=== PATIENT | female | born 2000 | race Hispanic/Latino ===

== ENCOUNTER 2022-03-09 21:35 | Emergency (ER) | payer MEDICARE ==
[~2022-03-09] VITALS: Ht 152.4 cm; Wt 67.6 kg
[2022-03-09] MEDS ORDERED: METOCLOPRAMIDE 10 MG/2 ML VIAL IVP ONE (22:30)
[2022-03-09] MEDS ORDERED: DiphenhydrAMINE HCL 50 MG/ML VIAL IV ONE (22:30)
[2022-03-09] MEDS ORDERED: KETOROLAC 30MG VIAL (30MG/ML) IVP ONE (22:30)
[2022-03-09] MEDS ORDERED: NAPR-1180 PO (23:07)
[2022-03-09 23:20] VITALS: BP 126/85
== END 2022-03-09 23:31 | disposition home or self-care (01) ==
LOC: EDH 21:35
DX: G43.909 Migraine, unspecified, not intractable, without status migrainosus (principal)
CPT/HCPCS: 99284; 96374; 96375; J1200; J1885; J2765

== ENCOUNTER 2022-10-29 20:14 | Emergency (ER) | payer MEDICARE ==
[~2022-10-29] VITALS: Ht 152.4 cm; Wt 70.8 kg
[~2022-10-29 20:14] MED LIST: NAPR-1180 PO
[2022-10-29] MEDS ORDERED: 0.9%NACL 1000ML 1,000 ML IV ONE (22:00)
[2022-10-29] MEDS ORDERED: ONDANSETRON 4MG INJ IVP ONE (22:00)
[2022-10-29] MEDS ORDERED: MORPHINE 4 MG SYG IVP ONE (22:00)
[2022-10-29 22:04] LABS: BASOPHILS % (AUTO) 0.2 % (0.0-5.0); EOSINOPHILS % (AUTO) 0.1 % (0.0-8.0); HEMATOCRIT 44.8 % (36-48); LYMPHOCYTES % (AUTO) 3.5 % (21.0-51.0); MEAN CORPUSCULAR HEMOGLOBIN 28.6 pg (27.0-33.0); MEAN CORPUSCULAR HGB CONC 34.2 g/dL (32.0-36.0); MEAN CORPUSCULAR VOLUME 83.7 fL (80-100); MONOCYTES % (AUTO) 3.4 % (3.0-13.0); NEUTROPHILS % (AUTO) 92.1 % (40.0-77.0); PLATELET COUNT (AUTO) 397 K/uL (130-400); RED BLOOD CELL COUNT(AUTO) 5.35 MIL/uL (4.00-5.50); RED CELL DISTRIBUTION WIDTH 12.4 % (11.0-15.5)
[2022-10-29 22:20] LABS: CARBON DIOXIDE 25 mmol/L (21-32); CHLORIDE 104 mmol/L (101-111); CREATININE 0.8 mg/dL (0.5-1.5); GLOMERULAR FILTR. RATE CALC 97 mL/min (>60); GLUCOSE,RANDOM 102 mg/dL (70-105); POTASSIUM 3.5 mmol/L (3.5-5.1); SODIUM SERUM 140 mmol/L (136-145); UREA NITROGEN, BLOOD 11 mg/dL (7-18)
[2022-10-29 22:22] LABS: ALANINE AMINOTRANSFERASE 17 U/L (12-78); ALBUMIN 4.5 g/dL (3.5-5.0); ASPARTATE AMINOTRANSFERASE 13 U/L (10-37); TOTAL PROTEIN, SERUM 8.3 g/dL (6.0-8.3)
[2022-10-29 22:35] LABS: LIPASE < 50 U/L (114-286)
[2022-10-29 22:44] LABS: APPEARANCE,URINE CLEAR (CLEAR); BILIRUBIN,URINE NEGATIVE (NEGATIVE); COLOR,URINE LIGHT-YELLOW (YELLOW); GLUCOSE, URINE (UA) NEGATIVE (NEGATIVE); KETONES,URINE 100 mg/dL (NEGATIVE); LEUKOCYTE ESTERASE ,URINE NEGATIVE Leu/uL (NEGATIVE); NITRATE,URINE NEGATIVE (NEGATIVE); OCCULT BLOOD,URINE SMALL (NEGATIVE); PROTEIN,URINE 10 mg/dL (NEGATIVE); UROBILINOGEN,URINE 0.2 mg/dL (0.2-1.0)
[2022-10-29] MEDS ORDERED: ACETAMINOPHEN 500 MG TABLET PO ONE (23:00)
[2022-10-29 23:20] LABS: RBC,URINE 0-1 /HPF (0-1); WBC,URINE 0-1 /HPF (0-1)
[2022-10-29 23:21] LABS: BACTERIA,URINE Few /HPF (None Seen); SQUAMOUS EPITHELIAL CELL,UR Few /HPF (0-2); TRANSITIONAL EPI CELLS,URINE Rare /HPF (None Seen)
[2022-10-29] MEDS ORDERED: DICYCLOMINE 20MG (10MG/ML) AMP IM STA (23:22)
[2022-10-29] MEDS ORDERED: ONDA4TAB10 PO (23:40)
[2022-10-29] MEDS ORDERED: DICY20TA2 PO (23:40)
[2022-10-29 23:49] VITALS: BP 106/60
== END 2022-10-30 00:31 | disposition home or self-care (01) ==
LOC: EDH 20:14
DX: K52.9 Noninfective gastroenteritis and colitis, unspecified (principal)
CPT/HCPCS: 99285; 96374; 76705; 96361; 96375; 80053; 84703; 83690; 85025; 81001; 36415; 96372; J7030; J2405; J2270; J0500

== ENCOUNTER 2023-04-28 00:47 | Emergency (ER) | payer MEDICARE ==
[~2023-04-28] VITALS: Ht 152.4 cm; Wt 73.0 kg
[~2023-04-28 00:47] MED LIST changes: +DICY20TA2 PO; +ONDA4TAB10 PO
[2023-04-28] MEDS ORDERED: CYCLOBENZAPRINE HCL 10 MG TABLET PO ONE (01:30)
[2023-04-28] MEDS ORDERED: IBUPROFEN 800 MG TAB PO ONE (01:30)
[2023-04-28 02:32] VITALS: BP 128/68; PULSE 84; RESP 18; O2SAT 98
[2023-04-28] MEDS ORDERED: IBUP-1493 PO (02:54)
[2023-04-28] MEDS ORDERED: CYCL-309 PO (02:54)
== END 2023-04-28 03:31 | disposition home or self-care (01) ==
LOC: EDH 00:47
DX: S20.212A Contusion of left front wall of thorax, initial encounter (principal); S40.011A Contusion of right shoulder, initial encounter; S50.01XA Contusion of right elbow, initial encounter; W18.39XA Other fall on same level, initial encounter; Y93.89 Activity, other specified; Y92.89 Other specified places as the place of occurrence of the external cause; Y99.8 Other external cause status
CPT/HCPCS: 71111; 72050; 73030; 73070; 73090; 81025

== ENCOUNTER 2025-02-10 19:48 | Emergency (ER) | payer BC, MEDICARE ==
[~2025-02-10] VITALS: Ht 152.4 cm; Wt 68.0 kg
[~2025-02-10 19:48] MED LIST changes: +CYCL-309 PO; +IBUP-1493 PO; +ONDA-243 PO; -ONDA4TAB10 PO
--- NOTE | 2025-02-10 20:15 | ERN ---
ED Note History of Present Illness Stated Complaint: DARK URINE, N/V/D Chief Complaint: Multiple Complaints Time Seen by MD: 20:12 Time Seen by Midlevel: 20:15 Dictation: Ms. Ruggiero is a 24 year old female with history of depression, headaches, and frequent UTI who presented to the emergency department this evening for evaluation of dysuria. She reports low back pain which she rates 8/10 accompanied by intermittent nausea, vomiting, and diarrhea. She has also noticed her urine is very dark in color. She states that she was diagnosed last month with kidney infection at [facility]. She date she completed her course of a ntibiotic and was not feeling any better. She states she now feels warm with for hot flashes school. She Denies shortness of breath, cough, chest pain, palpitations, edema, abdominal pain, hematemesis, constipation,melena, hematochezia, headache, dizziness, or focal weakness/paresthesia Allergies: Coded Allergies: No Known Allergies (Unverified Allergy, Unknown, 03/09/22) Home Meds Active Scripts Ibuprofen (Motrin/Advil) 800 Mg Tab, 800 MG PO TID, #30 TAB Prov:ERIK VALENZUELA MD 04/28/23 Cyclobenzaprine HCl (Cyclobenzaprine HCl) 10 Mg Tablet, 10 MG PO TID, #60 TAB Prov:ERIK VALENZUELA MD 04/28/23 Dicyclomine HCl (Bentyl) 20 Mg Tab, 20 MG PO DAILY for 2 Days, #2 TAB Prov:ANITHA RASCONP 10/29/22 Ondansetron (Ondansetron Odt) 4 Mg Tab.rapdis, 4 MG PO Q6HPRN PRN for NAUSEA for 2 Days, #8 TAB Prov:ANITHA RASCONP 10/29/22 Naproxen (Naprosyn) 500 Mg Tablet, 500 MG PO BIDPC for headache for 10 Days, #20 TAB 0 Refills Prov:ERIK VALENZUELA MD 03/09/22 Past Medical History Past Medical History: Depression, UTI Additional Past Medical Hx: HX OF HEADACHES Surgical History: None PSYCH History: no pertinent psych hx Family History: Negative Social History: Negative, Lives with family LMP: Feb 06, 2025 RN Note Reviewed/Agreed w/PFSH: Yes Review of System Dictation REVIEW OF SYSTEMS: CONSTITUTIONAL: Patient denies sweats and weight changes. Reports fatigue and states she feels warm with "hot flashes". EYES: Patient denies any visual symptoms. EARS, NOSE, AND THROAT: No difficulties with hearing. No symptoms of rhinitis or sore throat. CARDIOVASCULAR: Patient denies chest pains, palpitations, orthopnea and paroxysmal nocturnal dyspnea. RESPIRATORY: No dyspnea on exertion, no wheezing or cough. GI: No constipation, abdominal pain, hematochezia or melena. Reports intermittent nausea, vomiting and diarrhea. : No urinary hesitancy or dribbling. No nocturia or urinary frequency. No abnormal urethral discharge. Reports UTI last month (diagnosed at [facility]) and completed her course of antibiotics but is not feeling better. Reports low back back. She states usinr has been very dark in color. MUSCULOSKELETAL: Reports low back pain. NEUROLOGIC: No chronic headaches, no seizures. Patient denies numbness, tingling or weakness. PSYCHIATRIC: Patient denies problems with mood disturbance. No problems with anxiety. ENDOCRINE: No excessive urination or excessive thirst. DERMATOLOGIC: Patient denies any rashes or skin changes. Initial Vital Sign VS Vital Signs Date Time Temp Pulse Resp B/P (MAP) Pulse Ox O2 Delivery O2 Flow Rate FiO2 02/10/25 19:50 98.4 87 18 128/81 98 Room Air 02/10/25 20:34 0 21 Physical Exam Dictation Vital signs: Reviewed. Constitutional: No acute distress. Non-toxic appearing. Head/Face: Normocephalic, atraumatic. Eyes: Periorbital areas with no swelling, redness, or edema. Lids and lashes are normal. Conjunctival injection is absent. Sclera anicteric. Pupils equal, round, reactive to light. ENT: Pinnas intact and no signs of trauma or erythema. Ear canals clear and no discharge. TMs no erythema. No nasal discharge or bleeding noted. Oropharynx with no exudate, redness, swelling, masses, exudates, or evidence of obstruction. Uvula midline. Mucous membranes moist. Neck: Trachea midline, no masses palpated, and no cervical lymphadenopathy. No swelling. Supple, full range of motion. Chest/Axilla: No tenderness, no crepitus, no paradoxical movement, no retractio ns. Cardiovascular: Regular rate, regular rhythm, no murmur, no gallops. Symmetric pulses. No peripheral edema. Respiratory: Respirations even and unlabored. Lung sounds clear; no wheezes, rales or rhonchi. Gastrointestinal: Inspection is normal. No distention is appreciated. Bowel sounds are normal. No mass or organomegaly . There is no tenderness. No rebound. No rigidity. No voluntary or involuntary guarding. No Ross's sign. Neurological: Normal speech, gross motor function intact, gross sensory fun ction intact. No focal weakness/Paresthesia. Musculoskeletal/Extremities: All extremities have full range of motion, no pain or tenderness on palpation. Symmetric pulses. Integumentary: Intact. Skin is normal color, warm and dry. Cap refill less than 3 seconds. Results (Laboratory/Radiology) Laboratory/Radiology Laboratory Tests Test 02/10/25 20:15 White Blood Count 11.4 K/uL (4.8-10.8) H Red Blood Count 4.79 MIL/uL (4.00-5.50) Hemoglobin 14.0 g/dL (12.0-16.0) Hematocrit 41.4 % (36-48) Mean Corpuscular Volume 86.4 fL (79-99) Mean Corpuscular Hemoglobin 29.2 pg (27.0-33.0) Mean Corpuscular Hemoglobin Concent 33.8 g/dL (32.0-36.0) Red Cell Distribution Width 12.6 % (11.0-15.5) Platelet Count 360 K/uL (130-400) Mean Platelet Volume 10.2 fL (7.5-10.5) Immature Granulocyte % (Auto) 0.8 % (0-1) Neutrophils (%) (Auto) 63.9 % (40.0-77.0) Lymphocytes (%) (Auto) 25.3 % (21.0-51.0) Monocytes (%) (Auto) 8.0 % (3.0-13.0) Eosinophils (%) (Auto) 1.5 % (0.0-8.0) Basophils (%) (Auto) 0.5 % (0.0-5.0) Neutrophils # (Auto) 7.3 K/uL (1.8-7.7) Lymphocytes # (Auto) 2.9 K/uL (1.0-4.8) Monocytes # (Auto) 0.9 K/uL (0.1-1.0) Eosinophils # (Auto) 0.17 K/uL (0.00-0.70) Basophils # (Auto) 0.06 K/uL (0.00-0.20) Absolute Immature Granulocyte (auto 0.09 K/uL (0-1) Nucleated Red Blood Cells 0.0 % (0.0-0.19) Urine Color LIGHT-ORANGE (YELLOW) Urine Appearance TURBID (CLEAR) Urine pH 6.0 (5.0-8.0) Urine Specific [place] 1.022 (1.001-1.031) Urine Protein 20 mg/dL (NEGATIVE) H Urine Glucose (UA) NEGATIVE mg/dL (NEGATIVE) Urine Ketones NEGATIVE mg/dL (NEGATIVE) Urine Occult Blood SMALL (NEGATIVE) H Urine Nitrate NEGATIVE (NEGATIVE) Urine Bilirubin NEGATIVE mg/dL (NEGATIVE) Urine Urobilinogen 0.2 mg/dL (0.2-1.0) Urine Leukocyte Esterase 500 Cindi/uL (NEGATIVE) H Urine RBC 11-25 /HPF (0-1) H Urine WBC 51-100 /HPF (0-1) H Urine WBC Clumps (Auto) FEW /HPF (0-1) Urine Squamous Epithelial Cells MOD /HPF (0-2) Urine Other Crystals (Auto) 3 /HPF (None Seen) Urine Bacteria FEW /HPF (None Seen) Urine Yeast RARE /HPF (None Seen) Urine HCG, Qualitative NEGATIVE (NEGATIVE) Sodium Level 140 mmol/L (136-145) Potassium Level 3.7 mmol/L (3.5-5.1) Chloride Level 103 mmol/L (101-111) Carbon Dioxide Level 31 mmol/L (21-32) Blood Urea Nitrogen 10 mg/dL (7-18) Creatinine 0.7 mg/dL (0.5-1.0) Glomerular Filtration Rate Calc 125 mL/min (>90) Random Glucose 85 mg/dL (70-105) Total Calcium 8.6 mg/dL (8.5-10.1) ED Course ED Course Orders Procedure Category Date Status Time Urinalysis Profile LAB 02/10/25 Complete 20:14 ,Urine Test LAB 02/10/25 Complete 20:14 Ondansetron Odt 4mg PHA 02/10/25 Complete Tab (Zofran 4mg Odt) 20:30 Cbc With Differential LAB 02/10/25 Complete 20:14 Basic Metabolic Panel LAB 02/10/25 Complete 20:14 Ondansetron 4mg Inj PHA 02/10/25 Complete (Zofran 4mg Inj) 20:30 0.9%Nacl 1000ml (Ns PHA 02/10/25 Complete 1000ml) 20:30 Culture Urine CARROLL 02/10/25 In Process 20:23 Current Medications Medications (Trade) Dose Ordered Sig/Sylvia Route PRN Reason Start Time Stop Time Status Last Admin Dose Admin Ondansetron HCl (zoFRAN 4MG INJ) 4 mg ONCE ONCE IVP 02/10/25 20:30 02/10/25 20:31 DC 02/10/25 20:30 Ondansetron HCl (zoFRAN 4MG ODT) 4 mg ONCE ONCE SL 02/10/25 20:30 02/10/25 20:23 DC Sodium Chloride 1,000 ml @ 0 mls/hr ONCE ONCE IV 02/10/25 20:30 02/10/25 20:31 DC 02/10/25 20:30 Vital Signs Date Time Temp Pulse Resp B/P (MAP) Pulse Ox O2 Delivery O2 Flow Rate FiO2 02/10/25 20:34 78 19 126/74 100 Room Air* 0 21 02/10/25 19:50 98.4 87 18 128/81 98 Room Air Uneventful ED course. Vital signs are stable; afebrile and normotensive with room air SpO2 98-100%. Patient complained of some nausea for which she received dose Zofran. Laboratory findings as noted below. HCG negative. WBCs 11.4. No electrolyte derangement. No renal dysfunction. UA turbid;+ protein, blood, leukocyte esterase, and UWBC 51-100. Urine culture is pending. She received initial dose of Rocephin. Findings were discussed with patient and all questions were answered. Medical Decision Making MDM MDM: Differential diagnosis: UTI, pyelonephritis, sepsis, electrolyte derangement Rationale: Tests considered and ordered secondary to shared decision making include: Lab, UA Previous outside records reviewed: Old ER visits. Risk of complication and/or morbidity or mortality of patient management: None Medications-Per medication reconciliation Need for hospitalization: Patient does not meet criteria for hospitalization. Need for emergency major/minor surgery: No There are no social concerns with this patient. Prescription drug management: Ibuprofen, cephalexin, ondansetron Prescriptions will include symptomatic care Patient's prior external medical records from other ER visits were reviewed by me as indicated. Prior testing and results from previous visits were reviewed. Prior tests were taken into account with medical decision making and resource utilization, independent historian/historians were used to obtain complete medical history. I independently interpreted the test that were performed, results were reviewed by me and considered findings on radiology if ordered. Medical management and examination interpretation discussions were had by me with other qualified healthcare professionals as indicated for the patient's care. DX & DISP Disposition: Discharge Departure Impression: Primary Impression: UTI (urinary tract infection) Additional Impression: Nausea & vomiting Condition: Stable Scripts Cephalexin (Cephalexin) 500 Mg Tablet 1 TAB PO BID for 10 Days, #20 TAB 0 Refills Prov: CARINA SCHAEFER SIMULATION TECHNICIAN 02/10/25 Ondansetron (Ondansetron Odt) 4 Mg Tab.rapdis 1 TAB PO Q6HPRN PRN for nausea/vomiting for 4 Days, #16 TAB 0 Refills Prov: CARINA SCHAEFER NP 02/10/25 Ibuprofen (Ibuprofen) 600 Mg Tablet 1 TAB PO q8 hours PRN for pain, #15 TAB 0 Refills with food Prov: CARINA SCHAEFER SIMULATION TECHNICIAN 02/10/25 Additional Instructions: Continue antibiotic with cephalexin twice daily for 10 days. Drink plenty of fluids, especially water, to help push the infection out. Avoid bladder irritants such as caffeine, alcohol, and spicy foods until symptoms improve. Empty her bladder frequently, and do not hold your urine for long periods. Take Tylenol or ibuprofen as needed for discomfort. May take Zofran ODT every 6-8 hours as needed for nausea/vomiting. Follow up with your primary care for ph ysician next week. Should you continue to have infections you may benefit from referral to urologist or electric trucker for further investigation. Return to the emergency department a few develop: Fever chills, flank or back pain, are unable to keep fluids down, or worsening of symptoms despite taking antibiotics Referrals: DAVIS MICHAEL (PCP) Time of Disposition: 21:19 CARINA SCHAEFER SIMULATION TECHNICIAN Feb 10, 2025 20:15
[2025-02-10 20:20] LABS: BASOPHILS # (AUTO) 0.06 K/uL (0.00-0.20); BASOPHILS % (AUTO) 0.5 % (0.0-5.0); EOSINOPHILS # (AUTO) 0.17 K/uL (0.00-0.70); EOSINOPHILS % (AUTO) 1.5 % (0.0-8.0); HEMATOCRIT 41.4 % (36-48); IMMATURE GRANULOCYTE ABSOLUTE 0.09 K/uL (0-1); LYMPHOCYTES # (AUTO) 2.9 K/uL (1.0-4.8); LYMPHOCYTES % (AUTO) 25.3 % (21.0-51.0); MEAN CORPUSCULAR HEMOGLOBIN 29.2 pg (27.0-33.0); MEAN CORPUSCULAR HGB CONC 33.8 g/dL (32.0-36.0); MEAN CORPUSCULAR VOLUME 86.4 fL (79-99); MONOCYTES # (AUTO) 0.9 K/uL (0.1-1.0); NEUTROPHILS # (AUTO) 7.3 K/uL (1.8-7.7); NEUTROPHILS % (AUTO) 63.9 % (40.0-77.0); PLATELET COUNT (AUTO) 360 K/uL (130-400); RED BLOOD CELL COUNT(AUTO) 4.79 MIL/uL (4.00-5.50); RED CELL DISTRIBUTION WIDTH 12.6 % (11.0-15.5); WHITE BLOOD COUNT (AUTO) 11.4 K/uL (4.8-10.8)
[2025-02-10 20:22] LABS: APPEARANCE,URINE TURBID (CLEAR); BILIRUBIN,URINE NEGATIVE (NEGATIVE); COLOR,URINE LIGHT-ORANGE (YELLOW); GLUCOSE, URINE (UA) NEGATIVE (NEGATIVE); KETONES,URINE NEGATIVE (NEGATIVE); LEUKOCYTE ESTERASE ,URINE 500 Leu/uL (NEGATIVE); NITRATE,URINE NEGATIVE (NEGATIVE); OCCULT BLOOD,URINE SMALL (NEGATIVE); PROTEIN,URINE 20 mg/dL (NEGATIVE); UROBILINOGEN,URINE 0.2 mg/dL (0.2-1.0)
[2025-02-10 20:23] LABS: ADD UA MICROSCOPIC YES; CREATININE 0.7 mg/dL (0.5-1.0); POTASSIUM 3.7 mmol/L (3.5-5.1)
[2025-02-10 20:24] LABS: HCG,QUALITATIVE URINE NEGATIVE (NEGATIVE)
[2025-02-10 20:27] LABS: BACTERIA,URINE FEW /HPF (None Seen); MUCUS,URINE RARE LPF (None Seen); SQUAMOUS EPITHELIAL CELL,UR MOD /HPF (0-2); UNCLASSIFIED CRYSTAL 3 /HPF (None Seen); WBC CLUMP FEW /HPF (0-1); WBC,URINE 51-100 /HPF (0-1); YEAST,URINE BUDDING RARE /HPF (None Seen)
[2025-02-10] MEDS: ondanSETRON 4MG INJ IVP ONE (20:30)
[2025-02-10] MEDS: 0.9%NACL 1000ML 1,000 ML IV ONE (20:30)
[2025-02-10] MEDS ORDERED: ondanSETRON ODT 4MG TAB SL ONE (20:30)
[2025-02-10] MEDS ORDERED: CEPH500T PO (21:14)
[2025-02-10] MEDS ORDERED: ONDA-243 PO (21:14)
[2025-02-10] MEDS ORDERED: IBUP-2070 PO (21:14)
[2025-02-10] MEDS: cefTRIAXone 1G VIAL IVPB ONE (21:22)
[2025-02-10 21:25] VITALS: BP 133/67; PULSE 81; RESP 19; TEMP 98.7; O2SAT 100
== END 2025-02-10 21:27 | disposition home or self-care (01) ==
LOC: EDH 19:48
DX: N39.0 Urinary tract infection, site not specified (principal); R11.2 Nausea with vomiting, unspecified; Z79.1 Long term (current) use of non-steroidal anti-inflammatories (NSAID)
CPT/HCPCS: 99284; 96374; 96361; 96375; 80048; 85025; 87086; 81001; 81025; 36415; J7030; J0696; J2405

== ENCOUNTER 2025-02-20 16:55 | Emergency (ER) | payer BC ==
[~2025-02-20] VITALS: Ht 152.4 cm; Wt 72.6 kg
[~2025-02-20 16:55] MED LIST changes: +CEPH500T PO; +IBUP-2070 PO
--- NOTE | 2025-02-20 17:05 | ERN ---
General Chief Complaint: Flank Pain Stated Complaint: KIDNEY PAIN FOR 2 MONTHS Time Seen by MD: 16:57 Source: patient History of Present Illness Initial Comments Ms. Ruggiero is a 24 year old female with history of depression, headaches, and frequent UTI who presented to the emergency department this evening for evaluation of dysuria. PATIENT DOES STATE THAT SHE HAS BEEN BATTLING THIS URINARY TRACT INFECTION FOR TWO MONTHS. SHE HAS BEEN SEEN AT MULTIPLE HOSPITALS FOR THE SAME REASON. Allergies: Coded Allergies: No Known Allergies (Unverified Allergy, Unknown, 03/09/22) Home Meds Active Scripts Cephalexin (Cephalexin) 500 Mg Tablet, 1 TAB PO BID for 10 Days, #20 TAB 0 Refills Prov:CARINA SCHAEFER NP 02/10/25 Ondansetron (Ondansetron Odt) 4 Mg Tab.rapdis, 1 TAB PO Q6HPRN PRN for nausea/vomiting for 4 Days, #16 TAB 0 Refills Prov:CARINA SCHAEFER NP 02/10/25 Ibuprofen (Ibuprofen) 600 Mg Tablet, 1 TAB PO q8 hours PRN for pain, #15 TAB 0 Refills with food Prov:CARINA SCHAEFER NP 02/10/25 Ibuprofen (Motrin/Advil) 800 Mg Tab, 800 MG PO TID, #30 TAB Prov:ERIK VALENZUELA MD 04/28/23 Cyclobenzaprine HCl (Cyclobenzaprine HCl) 10 Mg Tablet, 10 MG PO TID, #60 TAB Prov:ERIK VALENZUELA MD 04/28/23 Dicyclomine HCl (Bentyl) 20 Mg Tab, 20 MG PO DAILY for 2 Days, #2 TAB Prov:ANITHA RASCON 10/29/22 Ondansetron (Ondansetron Odt) 4 Mg Tab.rapdis, 4 MG PO Q6HPRN PRN for NAUSEA for 2 Days, #8 TAB Prov:ANITHA RASCON 10/29/22 Naproxen (Naprosyn) 500 Mg Tablet, 500 MG PO BIDPC for headache for 10 Days, #20 TAB 0 Refills Prov:ERIK VALENZUELA MD 03/09/22 Past Medical History Past Medical History: No Pertinent History Medical History Other: HX OF HEADACHES Past Surgical History: None Family History Family History: Negative Social History Social History: Negative, Lives with family Female( History) LMP: Feb 08, 2025 ROS Dictation CONSTITUTIONAL: NO CHILLS, NO FEVER, NO WEAKNESS, NO DIAPHORESIS, NO MALAISE. HEAD/FACE: NO SIGNS OF TRAUMA. EENT: NO EYE PAIN, NO BLURRED VISION, NO TEARING, NO DOUBLE VISION, NO EAR PAIN, NO EAR DISCHARGE, NO NOSE PAIN, NO NASAL CONGESTION, NO THROAT PAIN, NO THROAT SWELLING, NO MOUTH PAIN. RESPIRATORY: NO COUGH, NO ORTHOPNEA, NO SOB, NO STRIDOR, NO WHEEZING. CARDIOVASCULAR: NO CHEST PAIN, NO EDEMA, NO PALPITATIONS, NO SYNCOPE. GASTROINTESTINAL/ABDOMINAL: NO ABDOMINAL PAIN, NO CONSTIPATION, NO DIARRHEA, NO NAUSEA, NO VOMITING. GENITOURINARY: NO ABNORMAL DISCHARGE, NO DYSURIA, NO FREQUENT URINATION, NO HEMATURIA. NO COMPLAINTS OF PAIN IN THE GENITALS. MUSCULOSKELETAL: NO BACK PAIN, NO GOUT, NO JOINT PAIN, NO JOINT SWELLING, NO MUSCLE PAIN, NO MUSCLE STIFFNESS, NO NECK PAIN. INTEGUMENTARY: NO CHANGE IN COLOR, NO CHANGE IN HAIR/NAILS, NO DRYNESS, NO LESION, NO LUMPS, NO RASH. NEUROLOGICAL/PSYCH: NO ANXIETY, NOT DEPRESSED, NO EMOTIONAL PROBLEM, NO HEADACHE, NO NUMBNESS, NO PRE-EXISTING DEFICIT, NO HISTORY OF SEIZURES, NO TREMORS, NO WEAKNESS. HEMATOLOGIC/LYMPHATIC: NOT ANEMIC, NO HISTORY OF BLOOD CLOTS, NO APPARENT BLEEDING, NO BRUISING, GLANDS NOT SWOLLEN. ALL SYSTEMS NEGATIVE, EXCEPT NOTED. Physical Exam Physical Exam Dictation VITAL SIGNS: REVIEWED. GENERAL APPEARANCE: ALERT, ORIENTED X3, NO ACUTE DISTRESS, OBESE. HEAD AND FACE: NON-TRAUMATIC. EYES: PERRL, PINK CONJUNCTIVAS, EYELID NO TRAUMA, ANTERIOR CHAMBER CLEAR. EARS: PINNAS INTACT AND NO SIGNS OF TRAUMA OR ERYTHEMA. EAR CANALS CLEAR AND NO DISCHARGE. TMS NO ERYTHEMA. NOSE: NO DISCHARGE, NO BLEEDING. OROPHARYNX: MOUTH NORMAL, TEETH NO CARIES, TONGUE PINK. PHARYNX CLEAR, NO ERYTHEMA. TONSILS NO EXUDATES, NO ABSCESSES NOTED. MUCOUS MEMBRANE MOIST. NECK: SUPPLE, NON-TENDER, NO THYROMEGALY, NO MASSES, NO JVD, NO BRUITS. BREAST: DEFERRED. CHEST: NO TENDERNESS, NO CREPITUS, NO PARADOXICAL MOVEMENT, NO RETRACTIONS. LUNGS: CLEAR, WELL-VENTILATED, SYMMETRIC, NO RALES, NO WHEEZING, NO RHONCHI, NO STRIDOR, GOOD BREATH SOUNDS BILATERALLY. HEART: REGULAR RATE, REGULAR RHYTHM, NO MURMUR, NO GALLOPS. VASCULAR: NO PERIPHERAL EDEMA. ABDOMEN: SOFT, POSITIVE BOWEL SOUNDS, NONDISTENDED, NO GUARDING, NONTENDER, NO REBOUND, NO MASSES NO HEPATOMEGALY, NO SPLENOMEGALY, NO LIM'S SIGN, NO HERNIAS. RECTAL: DEFERRED. GENITAL: DEFERRED. NEUROLOGICAL: NORMAL SPEECH, GROSS MOTOR FUNCTION INTACT, GROSS SENSORY FUNCTION INTACT. MUSCULOSKELETAL: NECK NONTENDER, FULL RANGE OF MOTION, BACK NONTENDER, FULL RANGE OF MOTION. EXTREMITIES: NONTENDER, FULL RANGE OF MOTION. SKIN: COLOR PINK, DRY, NO TURGOR, NO RASH, NO LACERATIONS, NO ABRASIONS, NO CONTUSIONS. LYMPHATICS: DEFERRED. Results Laboratory and Microbiology Lab and Micro Result Laboratory Tests Test 02/20/25 17:24 02/20/25 17:33 Urine Color YELLOW (YELLOW) Urine Appearance CLEAR (CLEAR) Urine pH 7.0 (5.0-8.0) Urine Specific [place] 1.020 (1.001-1.031) Urine Protein 10 mg/dL (NEGATIVE) H Urine Glucose (UA) NEGATIVE mg/dL (NEGATIVE) Urine Ketones NEGATIVE mg/dL (NEGATIVE) Urine Occult Blood SMALL (NEGATIVE) H Urine Nitrate NEGATIVE (NEGATIVE) Urine Bilirubin NEGATIVE mg/dL (NEGATIVE) Urine Urobilinogen 0.2 mg/dL (0.2-1.0) Urine Leukocyte Esterase 250 Cindi/uL (NEGATIVE) H Urine RBC 11-25 /HPF (0-1) H Urine WBC 2-5 /HPF (0-1) H Urine Squamous Epithelial Cells MOD /HPF (0-2) Urine Bacteria None /HPF (None Seen) Urine HCG, Qualitative NEGATIVE (NEGATIVE) Urine Opiates Screen NEGATIVE (NEGATIVE) Urine Barbiturates Screen NEGATIVE (NEGATIVE) Urine Phencyclidine Screen NEGATIVE (NEGATIVE) Urine Amphetamines Screen NEGATIVE (NEGATIVE) Urine Benzodiazepines Screen NEGATIVE (NEGATIVE) Urine Cocaine Screen NEGATIVE (NEGATIVE) Urine Marijuana (THC) Screen POSITIVE (NEGATIVE) H White Blood Count 11.1 K/uL (4.8-10.8) H Red Blood Count 4.80 MIL/uL (4.00-5.50) Hemoglobin 14.2 g/dL (12.0-16.0) Hematocrit 40.1 % (36-48) Mean Corpuscular Volume 83.5 fL (79-99) Mean Corpuscular Hemoglobin 29.6 pg (27.0-33.0) Mean Corpuscular Hemoglobin Concent 35.4 g/dL (32.0-36.0) Red Cell Distribution Width 12.6 % (11.0-15.5) Platelet Count 329 K/uL (130-400) Mean Platelet Volume 10.2 fL (7.5-10.5) Immature Granulocyte % (Auto) 0.6 % (0-1) Neutrophils (%) (Auto) 73.3 % (40.0-77.0) Lymphocytes (%) (Auto) 19.5 % (21.0-51.0) L Monocytes (%) (Auto) 5.3 % (3.0-13.0) Eosinophils (%) (Auto) 0.9 % (0.0-8.0) Basophils (%) (Auto) 0.4 % (0.0-5.0) Neutrophils # (Auto) 8.2 K/uL (1.8-7.7) H Lymphocytes # (Auto) 2.2 K/uL (1.0-4.8) Monocytes # (Auto) 0.6 K/uL (0.1-1.0) Eosinophils # (Auto) 0.10 K/uL (0.00-0.70) Basophils # (Auto) 0.05 K/uL (0.00-0.20) Absolute Immature Granulocyte (auto 0.07 K/uL (0-1) Nucleated Red Blood Cells 0.0 % (0.0-0.19) Sodium Level 137 mmol/L (136-145) Potassium Level 3.7 mmol/L (3.5-5.1) Chloride Level 101 mmol/L (101-111) Carbon Dioxide Level 30 mmol/L (21-32) Blood Urea Nitrogen 10 mg/dL (7-18) Creatinine 0.7 mg/dL (0.5-1.0) Glomerular Filtration Rate Calc 125 mL/min (>90) Random Glucose 133 mg/dL (70-105) H Total Calcium 9.2 mg/dL (8.5-10.1) Labs Reviewed?: Yes MDM MDM: DIFFERENTIAL DIAGNOSIS: UTI, PYELONEPHRITIS, RATIONALE: TESTS CONSIDERED AND ORDERED SECONDARY TO SHARED DECISION MAKING INCLUDE: PREVIOUS OUTSIDE RECORDS REVIEWED: OLD ER VISITS. RISK OF COMPLICATION AND/OR MORBIDITY OR MORTALITY OF PATIENT MANAGEMENT: NONE MEDICATIONS-PER MEDICATION RECONCILIATION NEED FOR HOSPITALIZATION: PATIENT DOES NOT MEET CRITERIA FOR HOSPITALIZATION. PATIENT IS A 24-YEAR-OLD FEMALE COMING IN TO BE EVALUATED FOR DYSURIA. LABORATORY WORKUP DID DISCLOSE A URINARY TRACT INFECTION. PATIENT RECEIVED IV ANTIBIOTICS. URINE CULTURE WILL BE COLLECTED. I DID ADVISED HER APPROPRIATE FOLLOW UP WITH THE PCP FOR ONGOING MANAGEMENT OF CHRONIC UTI. ED Course Orders Procedure Category Date Status Time Cbc With Differential LAB 02/20/25 Complete 17:00 Basic Metabolic Panel LAB 02/20/25 Complete 17:00 Urinalysis LAB 02/20/25 Complete W/Microscopic 17:00 ,Urine Test LAB 02/20/25 Complete 17:00 Drug Screen Urine LAB 02/20/25 Complete 17:00 Culture Urine CARROLL 02/20/25 In Process 17:42 Ceftriaxone 1g Vial PHA 02/20/25 Complete (Rocephine 1g Inj) 18:00 Current Medications Medications (Trade) Dose Ordered Sig/Sylvia Route PRN Reason Start Time Stop Time Status Last Admin Dose Admin Ceftriaxone Sodium (ROCEphine 1G INJ) 1 gm ONCE ONCE IVPB 02/20/25 18:00 02/20/25 18:04 DC 02/20/25 18:07 Vital Signs Date Time Temp Pulse Resp B/P (MAP) Pulse Ox O2 Delivery O2 Flow Rate FiO2 02/20/25 17:37 99.3 98 16 130/75 98 Room Air* 0 21 02/20/25 16:59 99.5 102 18 131/78 99 DX & DISP Disposition: Discharge Departure Impression: Primary Impression: UTI (urinary tract infection) Condition: Stable Scripts Sulfamethoxazole/Trimethoprim (Bactrim Ds Tablet) 800 Mg-160 Mg Tablet 1 TAB PO BID for 10 Days, #20 TAB 0 Refills Prov: MARTINE LALA MD 02/20/25 Additional Instructions: FOLLOW-UP WITH PRIMARY CARE PROVIDER IN 1 TO 2 DAYS. TAKE MEDICATIONS DIRECTED HERE IN THE EMERGENCY ROOM. OKAY TO CONTINUE HOME MEDICATIONS UNLESS OTHERWISE DISCUSSED DURING YOUR VISIT IN THE EMERGENCY ROOM TODAY. RETURN TO YOUR NEAREST EMERGENCY ROOM IF SYMPTOMS WORSEN OR IF THERE IS NO IMPROVEMENT. CALL 911 IF YOU NEED IMMEDIATE ASSISTANCE. TAKE TYLENOL [id number] NEEDED AND IF NO CONTRAINDICATIONS ARE PRESENT. INCREASE ORAL HYDRATION. A WOUND CULTURE OR URINE CULTURE WAS ORDERED HERE IN THE EMERGENCY ROOM DEPARTMENT PLEASE FOLLOW-UP WITH PRIMARY CARE PROVIDER AND ADVISE THEM TO GET REPORTS FROM OUR FACILITY. IF YOU HAD ANY ANGEL WRAP/SPLINTS THAT WERE APPLIED HERE, PLEASE DO NOT REMOVE THEM UNTIL YOU SEE YOUR PRIMARY CARE OR SPECIALTY. REFERRALS: Referrals: DAVIS MICHAEL (PCP) CHANDLER BARAHONA MD Time of Disposition: 18:04 MARTINE LALA MD Feb 20, 2025 17:05
[2025-02-20 17:37] VITALS: BP 130/75; PULSE 98; RESP 16; TEMP 99.3; O2SAT 98
[2025-02-20 17:39] LABS: BASOPHILS # (AUTO) 0.05 K/uL (0.00-0.20); BASOPHILS % (AUTO) 0.4 % (0.0-5.0); EOSINOPHILS % (AUTO) 0.9 % (0.0-8.0); HEMATOCRIT 40.1 % (36-48); IMMATURE GRANULOCYTE ABSOLUTE 0.07 K/uL (0-1); LYMPHOCYTES # (AUTO) 2.2 K/uL (1.0-4.8); LYMPHOCYTES % (AUTO) 19.5 % (21.0-51.0); MEAN CORPUSCULAR HEMOGLOBIN 29.6 pg (27.0-33.0); MEAN CORPUSCULAR HGB CONC 35.4 g/dL (32.0-36.0); MEAN CORPUSCULAR VOLUME 83.5 fL (79-99); MONOCYTES # (AUTO) 0.6 K/uL (0.1-1.0); MONOCYTES % (AUTO) 5.3 % (3.0-13.0); NEUTROPHILS # (AUTO) 8.2 K/uL (1.8-7.7); NEUTROPHILS % (AUTO) 73.3 % (40.0-77.0); PLATELET COUNT (AUTO) 329 K/uL (130-400); RED CELL DISTRIBUTION WIDTH 12.6 % (11.0-15.5); WHITE BLOOD COUNT (AUTO) 11.1 K/uL (4.8-10.8)
[2025-02-20 17:39] LABS: APPEARANCE,URINE CLEAR (CLEAR); BILIRUBIN,URINE NEGATIVE (NEGATIVE); COLOR,URINE YELLOW (YELLOW); GLUCOSE, URINE (UA) NEGATIVE (NEGATIVE); KETONES,URINE NEGATIVE (NEGATIVE); LEUKOCYTE ESTERASE ,URINE 250 Leu/uL (NEGATIVE); NITRATE,URINE NEGATIVE (NEGATIVE); OCCULT BLOOD,URINE SMALL (NEGATIVE); PROTEIN,URINE 10 mg/dL (NEGATIVE); UROBILINOGEN,URINE 0.2 mg/dL (0.2-1.0)
[2025-02-20 17:41] LABS: HCG,QUALITATIVE URINE NEGATIVE (NEGATIVE)
[2025-02-20 17:44] LABS: MUCUS,URINE RARE LPF (None Seen); SQUAMOUS EPITHELIAL CELL,UR MOD /HPF (0-2)
[2025-02-20 17:46] LABS: AMPHET/METH SCREEN,URINE NEGATIVE (NEGATIVE); BARBITURATE SCREEN, URINE NEGATIVE (NEGATIVE); BENZODIAZEPINES SCREEN,URINE NEGATIVE (NEGATIVE); CANNABINOID SCREEN,URINE POSITIVE (NEGATIVE); COCAINE SCREEN,URINE NEGATIVE (NEGATIVE); OPIATE SCREEN,URINE NEGATIVE (NEGATIVE); PHENCYCLIDINE SCREEN,URINE NEGATIVE (NEGATIVE)
[2025-02-20 17:52] LABS: CREATININE 0.7 mg/dL (0.5-1.0); POTASSIUM 3.7 mmol/L (3.5-5.1)
[2025-02-20] MEDS: cefTRIAXone 1G VIAL IVPB ONE (18:07)
[2025-02-20] MEDS ORDERED: SULF1TAB42 PO (18:17)
== END 2025-02-20 18:27 | disposition home or self-care (01) ==
LOC: EDH 16:55
DX: N39.0 Urinary tract infection, site not specified (principal); Z79.1 Long term (current) use of non-steroidal anti-inflammatories (NSAID); Z87.440 Personal history of urinary (tract) infections
CPT/HCPCS: 99284; 96374; 80048; 80305; 85025; 87086; 81025; 36415; 81001; J0696

== ENCOUNTER 2025-04-03 01:33 | Emergency (ER) | payer BC ==
[~2025-04-03] VITALS: Ht 152.4 cm; Wt 80.7 kg
[~2025-04-03 01:33] MED LIST changes: +IBUP-1492 PO; -IBUP-2070 PO; +SULF1TAB42 PO
[2025-04-03 02:08] LABS: IMMATURE GRANULOCYTE ABSOLUTE 0.12 K/uL (0-1); NUCLEATED RED BLOOD CELLS 0.0 % (0.0-0.19); PLATELET COUNT (AUTO) 339 K/uL (130-400); RED BLOOD CELL COUNT(AUTO) 4.86 MIL/uL (4.00-5.50); RED CELL DISTRIBUTION WIDTH 12.9 % (11.0-15.5); WHITE BLOOD COUNT (AUTO) 14.8 K/uL (4.8-10.8)
[2025-04-03] MEDS: PROCHLORPERAZINE 10MG/2ML INJ IV ONE (02:10)
[2025-04-03 02:15] LABS: ADD UA MICROSCOPIC YES; APPEARANCE,URINE CLEAR (CLEAR); GLUCOSE, URINE (UA) NEGATIVE (NEGATIVE); LEUKOCYTE ESTERASE ,URINE 75 Leu/uL (NEGATIVE); NITRATE,URINE NEGATIVE (NEGATIVE); OCCULT BLOOD,URINE SMALL (NEGATIVE)
[2025-04-03 02:17] LABS: CREATININE 0.7 mg/dL (0.5-1.0); GLOMERULAR FILTR. RATE CALC 125.0 mL/min (>90); GLUCOSE,RANDOM 114.0 mg/dL (70-105); SODIUM SERUM 139.0 mmol/L (136-145); UREA NITROGEN, BLOOD 10.0 mg/dL (7-18)
[2025-04-03 02:18] LABS: SQUAMOUS EPITHELIAL CELL,UR FEW /HPF (0-2)
[2025-04-03 02:22] LABS: ASPARTATE AMINOTRANSFERASE 16.0 U/L (10-37); TOTAL PROTEIN, SERUM 7.6 g/dL (6.0-8.3)
--- NOTE | 2025-04-03 04:02 | ERN ---
General Chief Complaint: Headache Stated Complaint: C/O HEADACHE, PAIN TO EYES, NAUSEA,BLURRY VISION Time Seen by MD: 01:44 History of Present Illness Initial Comments Ms. De La Garza a very pleasant 25-year-old female who comes in with a chief complaint of headache, photophobia and nausea. Patient is prior to arrival did take [id number] medicine but did not relieve her headache. Patient comes in also with a history of a chronic UTI patient denies any other symptomatology says is chest pain, and shortness of breath Allergies: Coded Allergies: No Known Allergies (Unverified Allergy, Unknown, 03/09/22) Home Meds Active Scripts Sulfamethoxazole/Trimethoprim (Bactrim Ds Tablet) 800 Mg-160 Mg Tablet, 1 TAB PO BID for 10 Days, #20 TAB 0 Refills Prov:MARTINE LALA MD 02/20/25 Cephalexin (Cephalexin) 500 Mg Tablet, 1 TAB PO BID for 10 Days, #20 TAB 0 Refills Prov:CARINA SCHAEFER NP 02/10/25 Ondansetron (Ondansetron Odt) 4 Mg Tab.rapdis, 1 TAB PO Q6HPRN PRN for nausea/vomiting for 4 Days, #16 TAB 0 Refills Prov:CARINA SCHAEFER NP 02/10/25 Ibuprofen (Ibuprofen) 600 Mg Tablet, 1 TAB PO q8 hours PRN for pain, #15 TAB 0 Refills with food Prov:CARINA SCHAEFER [employer]PARATIVE [employer]IOLOGY PROFESSOR 02/10/25 Ibuprofen (Motrin/Advil) 800 Mg Tab, 800 MG PO TID, #30 TAB Prov:ERIK VALENZUELA MD 04/28/23 Cyclobenzaprine HCl (Cyclobenzaprine HCl) 10 Mg Tablet, 10 MG PO TID, #60 TAB Prov:ERIK VALENZUELA MD 04/28/23 Dicyclomine HCl (Bentyl) 20 Mg Tab, 20 MG PO DAILY for 2 Days, #2 TAB Prov:ANITHA RASCONP 10/29/22 Ondansetron (Ondansetron Odt) 4 Mg Tab.rapdis, 4 MG PO Q6HPRN PRN for NAUSEA for 2 Days, #8 TAB Prov:ANITHA RASCONP 10/29/22 Naproxen (Naprosyn) 500 Mg Tablet, 500 MG PO BIDPC for headache for 10 Days, #20 TAB 0 Refills Prov:BIANCAERIK Trotter MD 03/09/22 Past Medical History Past Medical History: No Pertinent History Medical History Other: HX OF HEADACHES Past Surgical History: None Family History Family History: Negative Social History Social History: Negative, Lives with family Female( History) LMP: Mar 13, 2025 ROS Dictation Constitutional: Negative for fever,chills, and weight loss Eyes: Negative for injury, pain,redness, and discharge ENT: Negative for injury,pain or swelling Cardiovascular: Negative for chest pain, palpitations, and edema Respiratory: Negative for shortness of breath, cough, and wheezing, Abdomen/GI: Negative for abdominal pain, nausea, vomiting, diarrhea, and constipation Back: Negative for injury and pain : Negative for injury, bleeding and discharge MS/Extremity: Negative for injury and deformity Skin: Negative for rash, and discoloration Neuro: Positive for headache Psych: Negative for suicide ideation, homicidal ideation, and hallucinations Physical Exam Physical Exam Dictation General: awake, alert, NAD Head/Face: Normocephalic, atraumatic Eyes: PERRL, EOMI, vision at baseline ENT: oral cavity clear, TMs clear, no signs of infection Neck: Trachea midline, supple, no nuchal rigidity Cardiovascular: RRR, normal S1/S2, No MRGs, no JVD Respiratory: CTAB, no respiratory distress, No rales or wheezes Abdomen: Soft, non-tender, non-distended, normal bowel sounds, no guarding or rebound. Skin: Warm, dry, normal turgor, no rash MS/Extremity: Pulses equal, no cyanosis, neurovascular intact, FROM Neuro: COAx4, GCS 15, strength 5/5, CN 2-12 intact, normal cerebellar exam, normal gait, Psych: Positive for Results Laboratory and Microbiology Lab and Micro Result Laboratory Tests Test 04/03/25 02:00 White Blood Count 14.8 K/uL (4.8-10.8) H Red Blood Count 4.86 MIL/uL (4.00-5.50) Hemoglobin 14.1 g/dL (12.0-16.0) Hematocrit 41.0 % (36-48) Mean Corpuscular Volume 84.4 fL (79-99) Mean Corpuscular Hemoglobin 29.0 pg (27.0-33.0) Mean Corpuscular Hemoglobin Concent 34.4 g/dL (32.0-36.0) Red Cell Distribution Width 12.9 % (11.0-15.5) Platelet Count 339 K/uL (130-400) Mean Platelet Volume 10.5 fL (7.5-10.5) Immature Granulocyte % (Auto) 0.8 % (0-1) Neutrophils (%) (Auto) 70.9 % (40.0-77.0) Lymphocytes (%) (Auto) 19.8 % (21.0-51.0) L Monocytes (%) (Auto) 6.7 % (3.0-13.0) Eosinophils (%) (Auto) 1.3 % (0.0-8.0) Basophils (%) (Auto) 0.5 % (0.0-5.0) Neutrophils # (Auto) 10.5 K/uL (1.8-7.7) H Lymphocytes # (Auto) 2.9 K/uL (1.0-4.8) Monocytes # (Auto) 1.0 K/uL (0.1-1.0) Eosinophils # (Auto) 0.20 K/uL (0.00-0.70) Basophils # (Auto) 0.07 K/uL (0.00-0.20) Absolute Immature Granulocyte (auto 0.12 K/uL (0-1) Nucleated Red Blood Cells 0.0 % (0.0-0.19) Urine Color LIGHT-YELLOW (YELLOW) Urine Appearance CLEAR (CLEAR) Urine pH 6.0 (5.0-8.0) Urine Specific [place] 1.016 (1.001-1.031) Urine Protein NEGATIVE mg/dL (NEGATIVE) Urine Glucose (UA) NEGATIVE mg/dL (NEGATIVE) Urine Ketones NEGATIVE mg/dL (NEGATIVE) Urine Occult Blood SMALL (NEGATIVE) H Urine Nitrate NEGATIVE (NEGATIVE) Urine Bilirubin NEGATIVE mg/dL (NEGATIVE) Urine Urobilinogen 0.2 mg/dL (0.2-1.0) Urine Leukocyte Esterase 75 [place]/uL (NEGATIVE) H Urine RBC 6-10 /HPF (0-1) H Urine WBC 2-5 /HPF (0-1) H Urine Squamous Epithelial Cells FEW /HPF (0-2) Urine Bacteria MOD /HPF (None Seen) Sodium Level 139 mmol/L (136-145) Potassium Level 3.5 mmol/L (3.5-5.1) Chloride Level 103 mmol/L (101-111) Carbon Dioxide Level 25 mmol/L (21-32) Blood Urea Nitrogen 10 mg/dL (7-18) Creatinine 0.7 mg/dL (0.5-1.0) Glomerular Filtration Rate Calc 125 mL/min (>90) Random Glucose 114 mg/dL (70-105) H Total Calcium 8.8 mg/dL (8.5-10.1) Total Bilirubin 0.8 mg/dL (0.2-1.0) Aspartate Amino Transf (AST/SGOT) 16 U/L (10-37) Alanine Aminotransferase (ALT/SGPT) 37 U/L (12-78) Alkaline Phosphatase 70 U/L (50-136) Total Protein 7.6 g/dL (6.0-8.3) Albumin 4.1 g/dL (3.5-5.0) MDM Patient has had improvement of her headache with a migraine cocktail of Benadryl, IV Compazine, IV Toradol. Patient will be given Rocephin for UTI. Patient will be discharged after administration. MDM: Differential diagnosis: UTI Rationale: Tests considered and ordered secondary to shared decision making include: Previous outside records reviewed: Old ER visits. Risk of complication and/or morbidity or mortality of patient management: None Medications-Per medication reconciliation Need for hospitalization: Patient does not meet criteria for hospitalization. Need for emergency major/minor surgery: No There are no social concerns with this patient. Prescription drug management Prescriptions will include symptomatic care Patient's prior external medical records from other ER visits were reviewed by me as indicated. Prior testing and results from previous visits were reviewed. Prior tests were taken into account with medical decision making and resource utilization, independent historian/historians were used to obtain complete medical history. I independently interpreted the test that were performed, results were reviewed by me and considered findings on radiology if ordered. Medical management and examination interpretation discussions were had by me with other qualified healthcare professionals as indicated for the patient's care. ED Course Orders Procedure Category Date Status Time Cbc With Differential LAB 04/03/25 Complete 01:48 Comprehensive LAB 04/03/25 Complete Metabolic Panel 01:48 Urinalysis Profile LAB 04/03/25 Complete 01:48 Ketorolac PHA 04/03/25 Complete Tromethamine 15mg/Ml 02:00 Prochlorperazine PHA 04/03/25 Complete 10mg/2ml Inj 02:00 Diphenhydramine Hcl PHA 04/03/25 Complete (Benadryl Inj) 02:00 Culture Urine CARROLL 04/03/25 In Process 02:15 Ceftriaxone 1g Vial PHA 04/03/25 Complete (Rocephine 1g Inj) 03:30 Current Medications Medications (Trade) Dose Ordered Sig/Sylvia Route PRN Reason Start Time Stop Time Status Last Admin Dose Admin Ceftriaxone Sodium (ROCEphine 1G INJ) 1 gm ONCE ONCE IVPB 04/03/25 03:30 04/03/25 03:31 DC Diphenhydramine HCl (BENAdryl INJ) 25 mg ONCE ONCE IV 04/03/25 02:00 04/03/25 02:04 DC 04/03/25 02:10 Ketorolac Tromethamine (toRADol) 15 mg ONCE ONCE IV 04/03/25 02:00 04/03/25 02:04 DC 04/03/25 02:10 Prochlorperazine Edisylate (Compazine 10mg/ 2ml Inj) 10 mg ONCE ONCE IV 04/03/25 02:00 04/03/25 02:04 DC 04/03/25 02:10 Vital Signs Date Time Temp Pulse Resp B/P (MAP) Pulse Ox O2 Delivery O2 Flow Rate FiO2 04/03/25 01:56 98.8 95 18 125/66 99 Room Air* 0 21 04/03/25 01:35 98.4 115 20 97 Room Air DX & DISP Disposition: Discharge Departure Impression: Primary Impression: UTI (urinary tract infection) Condition: Stable Referrals: FILIPE OCASIO MD (PCP) ROD FELICIANO MD Apr 03, 2025 04:01
[2025-04-03 04:05] VITALS: BP 120/55; PULSE 88; RESP 18; TEMP 98.5; O2SAT 97
== END 2025-04-03 04:11 | disposition home or self-care (01) ==
LOC: EDH 01:33
DX: N39.0 Urinary tract infection, site not specified (principal); Z79.1 Long term (current) use of non-steroidal anti-inflammatories (NSAID)
CPT/HCPCS: 99284; 96374; 96375; 80053; 85025; 87086; 81001; 36415; J1885; J1200; J0780; J0696

== ENCOUNTER 2025-06-10 20:06 | Emergency (ER) | payer OTHER, BC ==
[~2025-06-10] VITALS: Ht 152.4 cm; Wt 77.1 kg
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
[2025-06-10 21:00] LABS: IMMATURE GRANULOCYTE ABSOLUTE 0.10 K/uL (0-1); NUCLEATED RED BLOOD CELLS 0.0 % (0.0-0.19); PLATELET COUNT (AUTO) 355 K/uL (130-400); RED BLOOD CELL COUNT(AUTO) 4.97 MIL/uL (4.00-5.50); RED CELL DISTRIBUTION WIDTH 13.1 % (11.0-15.5); WHITE BLOOD COUNT (AUTO) 10.6 K/uL (4.8-10.8)
[2025-06-10 21:09] LABS: CREATININE 0.8 mg/dL (0.5-1.0); GLOMERULAR FILTR. RATE CALC 106.0 mL/min (>90); GLUCOSE,RANDOM 86.0 mg/dL (70-105); SODIUM SERUM 141.0 mmol/L (136-145); UREA NITROGEN, BLOOD 10.0 mg/dL (7-18)
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
[2025-06-10 21:40] LABS: APPEARANCE,URINE CLEAR (CLEAR); GLUCOSE, URINE (UA) NEGATIVE (NEGATIVE); LEUKOCYTE ESTERASE ,URINE NEGATIVE Leu/uL (NEGATIVE); NITRATE,URINE NEGATIVE (NEGATIVE); OCCULT BLOOD,URINE SMALL (NEGATIVE)
[2025-06-10 21:42] LABS: ADD UA MICROSCOPIC YES
[2025-06-10 21:43] LABS: SQUAMOUS EPITHELIAL CELL,UR FEW /HPF (0-2)
[2025-06-10 21:49] LABS: AMPHET/METH SCREEN,URINE NEGATIVE (NEGATIVE); BARBITURATE SCREEN, URINE NEGATIVE (NEGATIVE); CANNABINOID SCREEN,URINE NEGATIVE (NEGATIVE); COCAINE SCREEN,URINE NEGATIVE (NEGATIVE)
[2025-06-10] MEDS: 0.9%NACL 1000ML 1,000 ML IV ONE (21:50)
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
[2025-06-10] MEDS ORDERED: KETO10 PO (22:35)
[2025-06-10 22:49] VITALS: BP 103/68; PULSE 90; RESP 18; TEMP 98.1; O2SAT 99
--- NOTE | 2025-06-11 02:39 | EKG ---
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
== END 2025-06-10 22:49 | disposition home or self-care (01) ==
LOC: EDH 20:06
DX: S20.219A Contusion of unspecified front wall of thorax, initial encounter (principal); S09.93XA Unspecified injury of face, initial encounter; M79.605 Pain in left leg; Z79.1 Long term (current) use of non-steroidal anti-inflammatories (NSAID); V50.5XXA Driver of pick-up truck or van injured in collision with pedestrian or animal in traffic accident, initial encounter; Y93.I9 Activity, other involving external motion; Y92.488 Other paved roadways as the place of occurrence of the external cause; Y99.8 Other external cause status
CPT/HCPCS: 99285; 70450; 96374; 71045; 80048; 80305; 84703; 85025; 72170; 36415; 72125; 93005; 81001; J1885; J7030